=== PATIENT | male | born 1970 | race American Indian/Alaskan Native ===

== ENCOUNTER 2024-05-24 08:32 | Emergency (ER) | payer SELFPAY ==
[2024-05-24 08:34] VITALS: BMI 28.8
--- NOTE | 2024-05-24 08:47 | XR_ITS ---
Examination: Shoulder,right, 3 views Technique: Shoulder AP internal rotation, AP external rotation, Y view shoulder, 3 views Exam date and time :May 20 40,025 0816 hours INDICATIONS: Patient fell today with injury to the shoulder, shoulder pain. 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
--- NOTE | 2024-05-24 08:51 | PD.EDUPEX ---
Upper Extremity Injury RME/HPI General Chief Complaint: Extremity Injury, Upper Stated Complaint: R) SHOULDER PAIN X 3 DAYS Time Seen by Provider: 05/24/24 08:34 Source: patient Arrival date/time: 05/24/24 08:32 53-year-old male with no known medical history presents to the emergency room with a chief complaint of right shoulder pain x 3 days after he was pulling on a rope or doing yard work. Mode of arrival: ambulatory Limitations: no limitations Related Data Allergies Allergy/AdvReac Type Severity Reaction Status Date / Time No Known Allergies Allergy Verified 05/24/24 08:37 Review of Systems Review of Systems Systems Reviewed: All systems reviewed, normal except as documented Constitutional Constitutional: Reports system reviewed and no additional complaints, except as documented, Denies fatigue, Denies fever(s), Denies headache(s) and Denies weakness Eyes Eyes: Reports system reviewed and no additional complaints, except as documented, Denies blurry vision and Denies change in vision ENT Ears, Nose, Mouth, and Throat: Reports system reviewed and no additional complaints, except as documented, Denies otalgia, Denies headache(s), Denies nasal congestion, Denies throat swelling and Denies vertigo Cardiovascular Cardiovascular: Reports system reviewed and no additional complaints, except as documented, Denies chest pain, Denies dyspnea and Denies dyspnea on exertion Respiratory Respiratory: Reports system reviewed and no additional complaints, except as documented, Denies chest congestion, Denies cough, Denies dyspnea, Denies dyspnea on exertion and Denies wheezing Gastrointestinal Gastrointestinal: Reports system reviewed and no additional complaints, except as documented, Denies abdominal pain, Denies cramping, Denies nausea and Denies vomiting Genitourinary Genitourinary: Reports system reviewed and no additional complaints, except as documented, Denies dysuria and Denies hematuria Musculoskeletal Musculoskeletal: Reports system reviewed and no additional complaints, except as documented, Reports arthralgias, Denies back pain, Reports joint swelling and Reports limited range of motion Integumentary/Breasts Skin/Breast: Reports system reviewed and no additional complaints, except as documented and Denies wounds Neurologic Neurologic: Reports system reviewed and no additional complaints, except as documented, Denies confusion, Denies headache(s), Denies lack of coordination, Denies vertigo and Denies weakness Psychiatric Psychiatric: Reports system reviewed and no additional complaints, except as documented, Denies anxiety, Denies confusion, Denies depression, Denies paranoia, Denies suicidal ideation and Denies tactile hallucinations Endocrine Endocrine: Reports system reviewed and no additional complaints, except as documented and Denies fatigue Hematologic/Lymphatic Hematologic/Lymphatic: Reports system reviewed and no additional complaints, except as documented and Denies lymphadenopathy Allergic/Immunologic Allergic/Immunologic: Reports system reviewed and no additional complaints, except as documented, Denies throat swelling, Denies urticaria and Denies wheezing Past Medical History Social History SMOKING STATUS: Never smoker ED Exam General Limitations: Present no limitations General appearance: Present alert and in no apparent distress Head Head exam: Present atraumatic Eye Eye exam: Present normal appearance, PERRL and EOMI ENT ENT exam: Present normal exam, normal oropharynx and mucous membranes moist Neck Neck exam: Present normal inspection, full ROM and trachea midline Chest Chest inspection: Present normal inspection and symmetric chest wall rise Respiratory Respiratory exam: Present normal lung sounds bilaterally Cardiovascular Cardiovascular exam: Present regular rate, normal rhythm and normal heart sounds Abdominal Exam Abdominal exam: Present soft and normal bowel sounds Extremities Exam Extremities exam: Present normal inspection and full ROM Expanded Upper Extremity Exam Shoulder exam: Present tenderness, swelling and tenderness over AC joint; Absent full ROM, deformity, crepitus or erythema Arm exam: Present normal inspection Elbow exam: Present normal inspection Forearm/Wrist exam: Present normal inspection Hand exam: Present normal inspection Vascular exam: Normal capillary refill Back Exam Back exam: Present normal inspection and full ROM Neurological Exam Neurological exam: Present alert, oriented X3 and CN II-XII intact Psychiatric Psychiatric exam: Present normal affect and normal mood Skin Skin exam: Present warm, dry, intact and normal color Course Quality Measures none Orders Category Date Time Status XR shoulder RT min 2V Stat Exams 05/24/24 08:47 Completed Ketorolac Inj [Toradol Inj] Med 05/24/24 08:47 Discontinued 30 mg IM X1 ONE Vital Signs Vital signs: Vital Signs Temperature 98.5 F 05/24/24 08:55 Pulse Rate 78 05/24/24 08:55 Respiratory Rate 16 05/24/24 08:55 Blood Pressure 162/92 H 05/24/24 08:55 Pulse Oximetry (%) 97 05/24/24 08:55 Oxygen Delivery Method Room Air 05/24/24 08:55 O2 saturation within normal limits Extremity Injury MDM Narrative MDM Narrative:: 53-year-old male with no known medical history presents to the emergency room with a chief complaint of right shoulder pain x 3 days after he was pulling on a rope or doing yard work. Patient is hemodynamically stable and in no apparent distress Physical examination shows pain and tenderness to the patient's right shoulder. Patient denies any trauma. Patient states he was doing yard work and was pulling on a rope in the next day patient had difficulty moving his shoulder with significant pain. Patient has limited range of motion and tenderness to the AC joint. X-ray of the right shoulder was completed and was negative for any acute fracture Patient was discharged and educated to follow-up with his primary care provider for further evaluation and management. Patient was educated that an outpatient MRI may be indicated if his symptoms continue. Patient was educated to keep the sling that he has on in place. Patient was discharged and educated to follow-up with primary care provider in the next 24 to 48 hours and return to the emergency room for any evidence of worsening signs or symptoms Patient data External records reviewed:: [facility] previous records Clinical information provided by:: patient Social determinants that could affect healthcare access:: none Patient has the following chronic illnesses:: No chronic illness How is presenting disease/condition affected by chronic disease/condition?: no chronic disease Evaluation data The following diagnostics were reviewed and interpreted by me:: lab results and radiology exam(s) Lab and/or radiology exams considered but not ordered:: Labs and radiology exams considered and ordered Interpretation Summary: Shoulder [id number]: Mild narrowing glenohumeral joint 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 (list below): No Diagnosis Upper Extremity Injury Differential Diagnosis: dislocation of shoulder and other (Shoulder fracture/shoulder ligament damage/shoulder sprain) Most likely diagnosis given after review of the tests above:: Shoulder sprain Admission Indicated Admission indicated?: not indicated Admission Request Was there a request for admission?: No Disposition Plan Disposition Plan: Discharge Discharge Attestation Discharge Attestation: The patient and all family members were given an opportunity to ask questions and understood the discharge instructions. Discharge instructions specifically effects, indications for sooner follow up or return to the emergency department, and the expected course of current diagnosis. Patient condition: Stable Discharge Plan Plan Patient Disposition: HOME (Self Care) Disposition Comment: Stable Prescriptions/Referrals Referrals: No Primary/Family,Physician [Primary Care Provider] - In 1 week Problem List Clinical Impression: Sprain of right shoulder Patient/Caregiver Discharge Instructions Education Materials: ED Shoulder Sprain Additional Instructions: Por favor, consulte con valladares m?dico de cabecera en las pr?ximas 24 a 48 horas. Se realiz? omayra radiograf?a de valladares hombro derecho y se detect? osteoartritis. Por favor, consulte con valladares m?dico de cabecera si los s?ntomas persisten, ya que podr?a estar indicada omayra resonancia magn?donnie para detectar cualquier da?o o desgarro de ligamentos. Si observa cualquier signo de empeoramiento de los signos o s?ntomas, acuda a urgencias de inmediato. Print Language: [place] Stand Alone Forms: [place] Award Info., Patient Portal Info Letter PA/CLASSIFICATION CASE MANAGER Supervising Physician PA/CLASSIFICATION CASE MANAGER Supervising Physician: Dr. Pak
[2024-05-24 08:55] VITALS: BP 162/92; PULSE 78; RESP 16; TEMP 36.9; O2SAT 97; BMI 29.6
[2024-05-24] MEDS: KETOROLAC INJ 60 MG/2 ML VIAL 30 MG IM (08:56)
== END 2024-05-24 10:39 | disposition home or self-care (01) ==
PROVIDERS: Emergency Provider Emergency Medicine
DX: S43.401A Unspecified sprain of right shoulder joint, initial encounter (principal); X58.XXXA Exposure to other specified factors, initial encounter
CPT/HCPCS: 73030; 96372; 99283; J1885